=== PATIENT | male | born 1990 | race African-American/Black ===

== ENCOUNTER 2017-04-22 14:52 | Emergency (ER) | payer MEDICAID ==
[~2017-04-22] VITALS: Ht 180.3 cm; Wt 75.0 kg
[2017-04-22 19:37] VITALS: BP 116/78
== END 2017-04-22 19:41 | disposition home or self-care (01) ==
LOC: ER 14:52
DX: S11.81XD Laceration without foreign body of other specified part of neck, subsequent encounter (principal); F17.200 Nicotine dependence, unspecified, uncomplicated; F12.10 Cannabis abuse, uncomplicated; R56.9 Unspecified convulsions; Y93.89 Activity, other specified; Y99.8 Other external cause status; Y92.89 Other specified places as the place of occurrence of the external cause
CPT/HCPCS: 99283; Z7610

== ENCOUNTER 2017-04-23 09:26 | Inpatient (IN) | payer MEDICAID ==
[~2017-04-23] VITALS: Ht 167.6 cm; Wt 70.3 kg
[2017-04-23] MEDS ORDERED: SODIUM CHLORIDE 0.9% 1,000 ML IV ONE (10:03)
[2017-04-23] MEDS ORDERED: LEVETIRACETAM 500 MG in SODIUM CHLORIDE 0.9% 100 ML IV SCH ×2 (10:15→22:00)
[2017-04-23] MEDS ORDERED: LEVETIRACETAM 500MG PREMIX 100 ML IV NR (10:20)
[2017-04-23 10:32] LABS: BASOPHILS % 1.1 % (0.0-2.0); HEMATOCRIT. 46.4 % (42.0-52.0); HEMOGLOBIN. 15.4 g/dL (14.0-18.0); LYMPHOCYTES % 18.5 % (20.0-50.0); MEAN CORPUSCULAR HEMOGLOBIN 28.8 pg (28.0-32.0); MEAN CORPUSCULAR VOLUME 86.6 fL (80.0-94.0); MEAN PLATELET VOLUME 7.1 fl (7.4-10.4); MONOCYTES % 9.5 % (2.0-8.0); NEUTROPHILS % 68.9 % (40.0-76.0); PLATELET 291 x1000/uL (130-400); RED BLOOD CELL COUNT 5.35 mill/uL (4.7-6.1); RED CELL DISTRIBUTION WIDTH 13.9 % (11.6-14.6)
[2017-04-23 10:35] LABS: CHLORIDE 99 mEq/L (98-107)
[2017-04-23 10:37] LABS: INR 1.1; PARTIAL THROMBOPLASTIN TIME 24.6 sec (23.4-31.0); PROTHROMBIN TIME 11.8 sec (9.4-11.6)
[2017-04-23 10:43] LABS: CARBON DIOXIDE 23 mEq/L (21-32); CREATINE KINASE 194 IU/L (39-308); ETHANOL BLOOD < 10 mg/dL
[2017-04-23 10:45] LABS: CARBAMAZEPINE < 0.5 ug/mL (4-12); PHENOBARBITAL < 2.1 ug/mL (15.0-40.0); VALPROIC ACID < 3.0 ug/mL (50-100)
[2017-04-23 12:00] VITALS: BP 108/57
[2017-04-23 12:31] VITALS: BP 106/56
[2017-04-23] MEDS ORDERED: LORAZEPAM 2MG/ML CPJ IV PRN (13:00)
[2017-04-23] MEDS: DEXT 5%/0.9% NACL 1,000 ML IV SCH (14:30)
[2017-04-23] MEDS: ENOXAPARIN 40MG/0.4ML SYR SUBCUT SCH (14:31)
[2017-04-23 16:00] VITALS: BP 95/62
[2017-04-23 18:33] LABS: *AMPHETAMINES SCREEN URINE PRESUMTIVE POSITIVE (NEGATIVE); *BARBITURATES SCREEN URINE NEGATIVE (NEGATIVE); *BENZODIAZEPINES SCREEN URINE NEGATIVE (NEGATIVE); *COCAINE SCREEN URINE NEGATIVE (NEGATIVE); CANNABINOID URINE SCREEN PRESUMTIVE POSITIVE (NEGATIVE); METHADONE URINE SCREEN NEGATIVE (NEGATIVE); OPIATES URINE SCREEN NEGATIVE (NEGATIVE); PHENCYCLIDINE URINE SCREEN NEGATIVE (NEGATIVE)
[2017-04-23 20:00] VITALS: BP 116/70
[2017-04-24 00:39] VITALS: BP 114/66
[2017-04-24 04:00] VITALS: BP 98/62
[2017-04-24 06:38] LABS: BASOPHILS % 1.2 % (0.0-2.0); EOSINOPHILS % 3.8 % (0.0-5.0); HEMATOCRIT. 41.5 % (42.0-52.0); HEMOGLOBIN. 13.6 g/dL (14.0-18.0); MEAN CORPUSCULAR HEMOGLOBIN 28.6 pg (28.0-32.0); MEAN CORPUSCULAR VOLUME 86.9 fL (80.0-94.0); MEAN PLATELET VOLUME 7.2 fl (7.4-10.4); PLATELET 284 x1000/uL (130-400); RED BLOOD CELL COUNT 4.77 mill/uL (4.7-6.1); RED CELL DISTRIBUTION WIDTH 13.9 % (11.6-14.6)
[2017-04-24 06:58] LABS: CARBON DIOXIDE 27 mEq/L (21-32); CHLORIDE 106 mEq/L (98-107)
[2017-04-24 08:00] VITALS: BP 91/43
[2017-04-24] MEDS: ENOXAPARIN 40MG/0.4ML SYR SUBCUT SCH (09:14)
[2017-04-24] MEDS: DEXT 5%/0.9% NACL 1,000 ML IV SCH ×2 (09:15→09:16)
== END 2017-04-24 11:20 | disposition left against medical advice (07) | DRG 53 ==
LOC: ER 09:26 → 6WST 10:31 → EDBEDREQ 10:36 → ENRESERV 11:09
PROVIDERS: ADMIT Internal Medicine Nephrology; ATTEND Internal Medicine Nephrology
DX: R56.9 Unspecified convulsions (principal); F17.210 Nicotine dependence, cigarettes, uncomplicated; F19.10 Other psychoactive substance abuse, uncomplicated; Z53.21 Procedure and treatment not carried out due to patient leaving prior to being seen by health care provider; Z59.0 Homelessness; Z91.19 Patient's noncompliance with other medical treatment and regimen
CPT/HCPCS: 36415; 70450; 80048; 80156; 80165; 80184; 80185; 80305; 82542; 82550; 85025; 85610; 85730; 96365; 99291; G0482; J1650; J1953; J7030; J7042; J7050

== ENCOUNTER 2017-08-04 11:22 | Emergency (ER) | payer MEDICAID ==
[~2017-08-04] VITALS: Ht 177.8 cm; Wt 107.0 kg
[2017-08-04] MEDS ORDERED: HYDROCODONE/ACETAMINOPHEN 5/325MG TABLET PO ONE (16:30)
[2017-08-04] MEDS ORDERED: LIDOCAINE HCL 1% 20ML VIAL (Pyxis) INJ INFIL ONE (18:15)
[2017-08-04] MEDS ORDERED: BACITRACIN ZINC OINT UDPKT TOP ONE (19:00)
[2017-08-04 19:18] VITALS: BP 127/77
== END 2017-08-04 19:19 | disposition home or self-care (01) ==
LOC: ER 11:22
DX: S51.811A Laceration without foreign body of right forearm, initial encounter (principal); F12.10 Cannabis abuse, uncomplicated; F17.200 Nicotine dependence, unspecified, uncomplicated; W25.XXXA Contact with sharp glass, initial encounter; Y93.89 Activity, other specified; Y92.89 Other specified places as the place of occurrence of the external cause; Y99.8 Other external cause status
CPT/HCPCS: 12002; 73090; 73130; 99284; J3490

== ENCOUNTER 2017-08-08 01:01 | Emergency (ER) | payer MEDICAID ==
[~2017-08-08] VITALS: Ht 177.8 cm; Wt 77.5 kg
[2017-08-08 01:13] VITALS: BP 121/56
== END 2017-08-08 02:12 | disposition home or self-care (01) ==
LOC: ER 01:01
DX: T81.33XA Disruption of traumatic injury wound repair, initial encounter (principal); Y82.8 Other medical devices associated with adverse incidents; Y92.098 Other place in other non-institutional residence as the place of occurrence of the external cause; F17.210 Nicotine dependence, cigarettes, uncomplicated; F12.90 Cannabis use, unspecified, uncomplicated
CPT/HCPCS: 99283; Z7610

== ENCOUNTER 2018-04-21 07:43 | Emergency (ER) | payer SELFPAY ==
[~2018-04-21] VITALS: Ht 175.3 cm; Wt 69.0 kg
[2018-04-21] MEDS ORDERED: LEVETIRACETAM 500MG PREMIX 100 ML IV ONE (08:45)
[2018-04-21 09:42] LABS: BASOPHILS % 0.7 % (0.0-2.0); EOSINOPHILS % 0.5 % (0.0-5.0); HEMATOCRIT. 43.2 % (42.0-52.0); HEMOGLOBIN. 14.3 g/dL (14.0-18.0); LYMPHOCYTES % 10.2 % (20.0-50.0); MEAN CORPUSCULAR HEMOGLOBIN 28.8 pg (28.0-32.0); MEAN CORPUSCULAR VOLUME 87.4 fL (80.0-94.0); MEAN PLATELET VOLUME 7.2 fl (7.4-10.4); MONOCYTES % 6.2 % (2.0-8.0); NEUTROPHILS % 82.4 % (40.0-76.0); PLATELET 306 x1000/uL (130-400); RED BLOOD CELL COUNT 4.95 mill/uL (4.7-6.1); RED CELL DISTRIBUTION WIDTH 14.1 % (11.6-14.6)
[2018-04-21 09:44] LABS: CLARITY URINE CLEAR (CLEAR); COLOR URINE YELLOW (YELLOW); KETONES URINE TRACE (NEGATIVE); LEUKOCYTE ESTERASE URINE 2+ (NEGATIVE); NITRITE URINE NEGATIVE (NEGATIVE); OCCULT BLOOD URINE NEGATIVE (NEGATIVE); PH URINE 5.5 (4.5-8.0); PROTEIN URINE TRACE (NEGATIVE); SPECIFIC GRAVITY URINE 1.023 (1.005-1.030)
[2018-04-21 09:50] LABS: INR 1.1; PROTHROMBIN TIME 10.8 sec (9.1-11.1)
[2018-04-21 10:02] LABS: CHLORIDE 104 mEq/L (98-107)
[2018-04-21 10:09] LABS: ETHANOL BLOOD < 10 mg/dL
[2018-04-21 10:10] LABS: CREATINE KINASE 229 IU/L (39-308)
[2018-04-21 10:21] LABS: CARBAMAZEPINE < 0.5 ug/mL (4-12); PHENOBARBITAL < 2.1 ug/mL (15.0-40.0); VALPROIC ACID < 3.0 ug/mL (50-100)
[2018-04-21 11:45] LABS: *AMPHETAMINES SCREEN URINE PRESUMTIVE POSITIVE (NEGATIVE); *BARBITURATES SCREEN URINE NEGATIVE (NEGATIVE); *BENZODIAZEPINES SCREEN URINE NEGATIVE (NEGATIVE); *COCAINE SCREEN URINE NEGATIVE (NEGATIVE); METHADONE URINE SCREEN NEGATIVE (NEGATIVE)
[2018-04-21 11:46] LABS: CANNABINOID URINE SCREEN NEGATIVE (NEGATIVE); OPIATES URINE SCREEN NEGATIVE (NEGATIVE); PHENCYCLIDINE URINE SCREEN NEGATIVE (NEGATIVE)
[2018-04-21 15:09] VITALS: BP 112/79
== END 2018-04-21 15:12 | disposition home or self-care (01) ==
LOC: ER 08:14
DX: G40.909 Epilepsy, unspecified, not intractable, without status epilepticus (principal); N39.0 Urinary tract infection, site not specified; R03.0 Elevated blood-pressure reading, without diagnosis of hypertension
CPT/HCPCS: 36415; 80053; 80156; 80165; 80184; 80185; 80305; 81003; 82550; 82962; 85025; 85610; 87086; 96365; 99284; G0482; J1953

== ENCOUNTER 2018-04-25 03:05 | Emergency (ER) | payer SELFPAY ==
[~2018-04-25] VITALS: Ht 177.8 cm; Wt 67.0 kg
[2018-04-25] MEDS ORDERED: LEVETIRACETAM 500MG TABLET PO ONE (03:30)
[2018-04-25 04:02] VITALS: BP 131/66
== END 2018-04-25 04:03 | disposition home or self-care (01) ==
LOC: ER 03:05
DX: G40.909 Epilepsy, unspecified, not intractable, without status epilepticus (principal); Z91.14 Patient's other noncompliance with medication regimen; R03.0 Elevated blood-pressure reading, without diagnosis of hypertension
CPT/HCPCS: 82962; 99283

== ENCOUNTER 2018-07-17 08:20 | Emergency (ER) | payer SELFPAY ==
[~2018-07-17] VITALS: Ht 177.8 cm; Wt 80.0 kg
[2018-07-17] MEDS ORDERED: LEVETIRACETAM 500MG PREMIX 100 ML IV ONE (08:45)
[2018-07-17 09:33] VITALS: BP 105/73
== END 2018-07-17 09:47 | disposition home or self-care (01) ==
LOC: ER 08:34
DX: G40.909 Epilepsy, unspecified, not intractable, without status epilepticus (principal); Z91.14 Patient's other noncompliance with medication regimen
CPT/HCPCS: 96365; 99283; J1953

== ENCOUNTER 2020-02-04 06:57 | Emergency (ER) | payer MEDICAID ==
[~2020-02-04] VITALS: Ht 188 cm; Wt 90.0 kg
[2020-02-04 07:45] LABS: BASOPHILS % 1.4 % (0.0-2.0); EOSINOPHILS % 1.6 % (0.0-5.0); HEMATOCRIT. 41.9 % (42.0-52.0); HEMOGLOBIN. 14.4 g/dL (14.0-18.0); LYMPHOCYTES % 18.9 % (20.0-50.0); MEAN CORPUSCULAR HEMOGLOBIN 30.1 pg (28.0-32.0); MEAN CORPUSCULAR VOLUME 87.6 fL (80.0-94.0); MEAN PLATELET VOLUME 7.3 fl (7.4-10.4); MONOCYTES % 7.8 % (2.0-8.0); NEUTROPHILS % 70.3 % (40.0-76.0); PLATELET 258 x1000/uL (130-400); RED BLOOD CELL COUNT 4.79 mill/uL (4.7-6.1); RED CELL DISTRIBUTION WIDTH 13.4 % (11.6-14.6)
[2020-02-04 07:51] LABS: CHLORIDE 104 mEq/L (98-107)
[2020-02-04 07:55] LABS: ETHANOL BLOOD < 10 mg/dL
[2020-02-04 09:44] LABS: CLARITY URINE CLEAR (CLEAR); COLOR URINE YELLOW (YELLOW); KETONES URINE NEGATIVE (NEGATIVE); LEUKOCYTE ESTERASE URINE NEGATIVE (NEGATIVE); NITRITE URINE NEGATIVE (NEGATIVE); OCCULT BLOOD URINE NEGATIVE (NEGATIVE); PROTEIN URINE TRACE (NEGATIVE); SPECIFIC GRAVITY URINE 1.012 (1.005-1.030)
[2020-02-04 09:59] LABS: *AMPHETAMINES SCREEN URINE PRESUMTIVE POSITIVE (NEGATIVE); *BARBITURATES SCREEN URINE NEGATIVE (NEGATIVE); *BENZODIAZEPINES SCREEN URINE NEGATIVE (NEGATIVE); *COCAINE SCREEN URINE NEGATIVE (NEGATIVE); METHADONE URINE SCREEN NEGATIVE (NEGATIVE); OPIATES URINE SCREEN NEGATIVE (NEGATIVE)
[2020-02-04 10:00] LABS: CANNABINOID URINE SCREEN NEGATIVE (NEGATIVE); PHENCYCLIDINE URINE SCREEN NEGATIVE (NEGATIVE)
[2020-02-04 11:15] VITALS: BP 115/55
== END 2020-02-04 11:16 | disposition home or self-care (01) ==
LOC: ER 06:57
DX: R56.9 Unspecified convulsions (principal); F15.129 Other stimulant abuse with intoxication, unspecified; Z91.19 Patient's noncompliance with other medical treatment and regimen
CPT/HCPCS: 36415; 80053; 80305; 80320; 81003; 82962; 85025; 99283; G0480

== ENCOUNTER 2021-10-23 19:15 | Emergency (ER) | payer MEDICAID ==
[~2021-10-23] VITALS: Ht 177.8 cm; Wt 75.0 kg
[2021-10-23] MEDS ORDERED: IBUPROFEN 600MG TABLET PO ONE (19:30)
[2021-10-23] MEDS ORDERED: LIDOCAINE HCL/EPINEPHRINE 1%-EPI 1:100,000 20 ML VIAL INFIL ONE (19:30)
[2021-10-23] MEDS ORDERED: TETANUS, DIPHTHERIA, PERTUSSIS VAC/PF 0.5ML (>10YR OLD) IM ONE (19:30)
[2021-10-23] MEDS ORDERED: BACITRACIN ZINC OINT UDPKT TOP ONE (19:30)
[2021-10-24] MEDS ORDERED: IBUP-2029 MT (00:56)
[2021-10-24] MEDS ORDERED: CEPH500C2 MT ×2 (00:56)
[2021-10-24 04:16] VITALS: BP 156/85
[2021-10-24] MEDS ORDERED: LEVE750T4 PO (14:34)
[2021-10-26] MEDS ORDERED: CEPH500C2 MT (12:17)
[2021-10-26] MEDS ORDERED: LEVE1000 MT (12:17)
== END 2021-10-24 04:17 | disposition home or self-care (01) ==
LOC: ER 19:15
DX: S81.812A Laceration without foreign body, left lower leg, initial encounter (principal); F15.10 Other stimulant abuse, uncomplicated; X58.XXXA Exposure to other specified factors, initial encounter; Y93.89 Activity, other specified; Y92.89 Other specified places as the place of occurrence of the external cause; Y99.8 Other external cause status
CPT/HCPCS: 12002; 73610; 90471; 90715; 99283; Z7610

== ENCOUNTER 2021-12-06 16:17 | Emergency (ER) | payer MEDICAID ==
[~2021-12-06] VITALS: Ht 175.3 cm; Wt 73.0 kg
[~2021-12-06 16:17] MED LIST: CEPH500C2 MT; IBUP-2029 MT; LEVE1000 MT
[2021-12-06 16:24] VITALS: BP 132/85
[2021-12-06 17:23] LABS: CHLORIDE 102 mEq/L (98-107)
== END 2021-12-06 17:57 | disposition home or self-care (01) ==
LOC: ER 16:17
DX: F15.10 Other stimulant abuse, uncomplicated (principal); R00.2 Palpitations; R94.31 Abnormal electrocardiogram [ECG] [EKG]; G40.909 Epilepsy, unspecified, not intractable, without status epilepticus
CPT/HCPCS: 36415; 80048; 83735; 93005; 99284